=== PATIENT | female | born 1980 | race Caucasian/White ===

== ENCOUNTER 2020-03-24 10:07 | Emergency (ER) | payer BC ==
--- OUTSIDE RECORDS SUMMARY | 2020-03-24 10:09 | XMS REPORT | Clinical Summary ---
:1980 Author Organization [facility] Address [address] [place] [address] Care Team Providers Name Role Phone Santy Sarmiento MD Primary Care Provider [phone] Allergies Active Allergy Reactions Severity Noted Date Comments Penicillins Anaphylaxis, Hives High 12/07/2019 Medications Medication Sig Dispensed Refills Start Date End Date Status metFORMIN (GLUCOPHAGE) Take by mouth 2 0 09/20/2019 Active 500 mg tablet (two) times a day. valACYclovir (VALTREX) Take 500 mg by 0 09/15/2019 Active 500 MG tablet mouth as needed. Active Problems Problem Noted Date PCOS (polycystic ovarian syndrome) Encounters Date Type Specialty Care Team Description 12/18/2019 Hospital Encounter Radiology Santy Sarmiento MD 12/13/2019 Hospital Encounter Radiology Santy Sarmiento Screen ing for breast MD Jeb cancer 12/07/2019 Office Visit Family Medicine Santy Sarmiento Annual ph ysical exam (Primary Dx); MD Jeb Screening for b reast cancer; Screening for m etabolic disorder; Screening for d iabetes mellitus (DM); Screening for d eficiency anemia; Screening royer sterol level after 03/24/2019 Family History Medical History Relation Name Comments Skin cancer Father Hypertension Mother Skin cancer Mother Cervical cancer Sister Relation Name Status Comments Father Alive Mother Alive Sister Alive Social History Tobacco Use Types Packs/Day Years Used Date Never Smoker Smokeless Tobacco: Never Used Alcohol Use Drinks/Week oz/Week Comments Yes 4 Cans of beer 4.0 Sex Assigned at Date Recorded Not on file Job Start Date Occupation Industry Not on file Not on file Not on file Travel History Travel Start Travel End No recent travel history available. Last Filed Vital Signs Vital Sign Reading Time Taken Comments Blood Pressure 110/72 12/07/2019 10:40 AM FREELANCE INTERPRETER/TRANSLATOR Pulse 78 12/07/2019 10:40 AM FREELANCE INTERPRETER/TRANSLATOR Temperature 36.7 C (98 F) 12/07/2019 10:40 AM FREELANCE INTERPRETER/TRANSLATOR Respiratory Rate 16 12/07/2019 10:40 AM FREELANCE INTERPRETER/TRANSLATOR Oxygen Saturation 98% 12/07/2019 10:40 AM FREELANCE INTERPRETER/TRANSLATOR Inhaled Oxygen Concentration - - Weight 63.3 kg (139 lb 9.6 oz) 12/07/2019 10:40 AM FREELANCE INTERPRETER/TRANSLATOR Height 162.6 cm (5' 4") 12/07/2019 10:40 AM FREELANCE INTERPRETER/TRANSLATOR Body Mass Index 23.96 12/07/2019 10:40 AM FREELANCE INTERPRETER/TRANSLATOR Plan of Treatment Health Maintenance Due Date Last Done Comments INFLUENZA VACCINE 06/01/2020 CERVICAL CANCER SCREENING 12/21/2021 12/21/2018 Procedures Procedure Name Priority Date/Time Associated Comments Diagnosis MAMMO BREAST SCREEN Routine 12/13/2019 7:17 Screening for Res ults for this TOMOSYNTHESIS AM FREELANCE INTERPRETER/TRANSLATOR breast cancer procedure are in BILATERAL the results section. LIPID PANEL Routine 12/08/2019 7:44 Screening Results for this AM FREELANCE INTERPRETER/TRANSLATOR cholesterol level procedure are in the results section. CBC WITH PLATELET AND Routine 12/08/2019 7:44 Screening for R esults for this DIFFERENTIAL AM FREELANCE INTERPRETER/TRANSLATOR deficiency anemia procedure are in the results section. HEMOGLOBIN A1C Routine 12/08/2019 7:44 Screening for Results for this AM FREELANCE INTERPRETER/TRANSLATOR diabetes mellitus procedure are in (DM) the results section. COMPREHENSIVE Routine 12/08/2019 7:44 Screening for Results f or this METABOLIC PANEL AM FREELANCE INTERPRETER/TRANSLATOR metabolic disorder proced ure are in the results section. POC URINALYSIS Routine 12/07/2019 1:43 Annual physical Result s for this DIPSTICK PM FREELANCE INTERPRETER/TRANSLATOR exam procedure are i n the results section. after 03/24/2019 Results Mammo Breast Screen Tomosynthesis Bilateral (12/13/2019 7:17 AM FREELANCE INTERPRETER/TRANSLATOR) Specimen Addenda Addendum by Griselda Billings MD o n 12/20/2019 10:13 AM ADDENDUM #1 Outside institution digital mammograms d ated 11/07/2018 from [facility] outpatient imaging Departme nt have been provided for review and comparison. The previously described findings are st able and unchanged from prior comparison imaging. There are no suspici ous mammographic findings in either breast. BI-RADS Category 2: BENIGN. Narrative Performed At EXAMINATION: MAMMO BREAST SCREEN TOMOS YNTHESIS BILATERAL 12/13/2019 [facility] Computer-assisted detection was utilized in the interp retation of this exam. COMPARISONS: None. INDICATION: 39 year-old female who pre sents for annual evaluation. FINDINGS: The breast parenchyma is heterogeneously dense. This l imits the overall sensitivity of mammography, possibly obscuring the det ection of small masses. Within these limitations there are no suspicio us mammographic findings. IMPRESSION: No mammographic evidence of malignancy. In the absence of any clinical change, continued routine annual mammographic surveill ance per ACR guidelines is recommended. BI-RADS Category 2: BENIGN. DWS01 Performing Organization Address City/State/Zipcode Phone Number [facility] [address] [place] [address] CBC with platelet and differential (12/08/2019 7:44 AM FREELANCE INTERPRETER/TRANSLATOR) Pathologist Sig nature WBC 5.6 3.4 - 10.8 x10E3/uL [facility] RBC 3.99 3.77 - 5.28 x10E6/uL [facility] HGB 12.6 11.1 - 15.9 g/dL [facility] HCT 37.9 34.0 - 46.6 % [facility] MCV 95 79 - 97 fL [facility] MCH 31.6 26.6 - 33.0 pg [facility] MCHC 33.2 31.5 - 35.7 g/dL [facility] RDW 13.5 11.7 - 15.4 % [facility] Platelet count 246 150 - 450 x10E3/uL [facility] Neutrophils 68 Not Estab. % [facility] Lymphocytes 25 Not Estab. % [facility] Monocytes 5 Not Estab. % [facility] Eosinophils 2 Not Estab. % [facility] Basophils 0 Not Estab. % [facility] Neutrophils, absolute 3.8 1.4 - 7.0 x10E3/uL [facility] Lymphocytes, absolute 1.4 0.7 - 3.1 x10E3/uL [facility] Monocytes, absolute 0.3 0.1 - 0.9 x10E3/uL [facility] Eosinophils, absolute 0.1 0.0 - 0.4 x10E3/uL [facility] Basophils, absolute 0.0 0.0 - 0.2 x10E3/uL [facility] Immature granulocytes 0 Not Estab. % [facility] Immature grans (abs) 0.0 0.0 - 0.1 x10E3/uL [facility] Specimen Blood Narrative Performed At Performed at: [address] [id number] Butt Maker: Zachery Henry MD, Phone: [phone] Performing Organization Address [facility] Phone Number [facility] Hemoglobin A1c (12/08/2019 7:44 AM FREELANCE INTERPRETER/TRANSLATOR) Pathologist Sig nature Hemoglobin A1C 4.8 4.8 - 5.6 % [facility] Comment: Prediabetes: 5.7 - 6.4 Diabetes: >6.4 Glycemic control for adults with diabetes : <7.0 Specimen Blood Narrative Performed At Performed at: [place] [id number] Butt Maker: Zachery Henry MD, Phone: [phone] Performing Organization Address [facility] Phone Number [facility] Lipid panel (12/08/2019 7:44 AM FREELANCE INTERPRETER/TRANSLATOR) Pathologist Sig nature Cholesterol 161 100 - 199 mg/dL [facility] Triglycerides 65 0 - 149 mg/dL [facility] HDL cholesterol 79 >39 mg/dL [facility] VLDL cholesterol kathryn 13 5 - 40 mg/dL [facility] LDL cholesterol calculated 69 0 - 99 mg/dL [facility] Non-HDL cholesterol 82 0 - 129 mg/dL [facility] Specimen Blood Narrative Performed At Performed at: [address] [id number] Butt Maker: Zachery Henry MD, Phone: [phone] Performing Organization Address [facility] Phone Number [facility] Comprehensive metabolic panel (12/08/2019 7:44 AM FREELANCE INTERPRETER/TRANSLATOR) Glucose 83 65 - 99 mg/dL [facility] BUN 14 6 - 24 mg/dL [facility] Creatinine 0.94 0.57 - 1.00 [facility] mg/dL EGFR Non-Afr. 76 >59 [facility] Somali mL/min/1.73 EGFR 87 >59 [facility] Somali mL/min/1.73 BUN/creatinine ratio 15 9 - 23 [facility] Sodium 139 134 - 144 [facility] mmol/L Potassium 4.7 3.5 - 5.2 [facility] mmol/L Chloride 100 96 - 106 [facility] mmol/L CO2 22 20 - 29 mmol/L [facility] Calcium 9.4 8.7 - 10.2 [facility] mg/dL Protein 6.6 6.0 - 8.5 g/dL [facility] Albumin, S 4.5Comment: 3.8 - 4.8 g/dL [facility] Please note reference interval change Globulin, total 2.1 1.5 - 4.5 g/dL [facility] Albumin/globulin 2.1 1.2 - 2.2 [facility] ratio Total bilirubin 0.7 0.0 - 1.2 [facility] mg/dL Alkaline phosphatase 45 39 - 117 IU/L [facility] AST 17 0 - 40 IU/L [facility] ALT 13 0 - 32 IU/L [facility] Specimen Blood Narrative Performed At Performed at: [facility] [id number] Butt Maker: Zachery Henry MD, Phone: [phone] Performing Organization Address City/State/Zipcode Phone Number [facility] POC urinalysis dipstick (12/07/2019 1:43 PM FREELANCE INTERPRETER/TRANSLATOR) Pathologist Sig nature Color urine, POC Yellow Clarity urine, POC Clear Glucose urine, POC Negative Negative Bilirubin urine, POC Negative Negative Ketones urine, POC Negative Negative Specific gravity urine, 1.010 1.005 - 1.030 POC Blood urine, POC Negative Negative pH urine, POC 6.5 5.0, 5.5, 6.0, 6.5, 7.0, 7.5, 8.0, 8.5 Protein urine, POC Negative Negative Urobilinogen urine, POC <2.0 <2.0 Nitrite urine, POC Negative Negative Leukocyte esterase Negative Negative urine, POC Specimen Urine after 03/24/2019 Advance Directives For more information, please contact: [phone] Type Date Recorded Patient Police Captain Senior Explanati on Advance Directives, Living Will and Medical Power of Lead Care Manager
--- OUTSIDE RECORDS SUMMARY | 2020-03-24 10:10 | XMS REPORT ---
:1980 Author Organization [facility] t Address [address] [place] [address] [address]. [address] [place] [address] Care Team Providers Name Role Phone Torsten PIERSON, Rubia Russ Primary Care Physician Rubia Sarmiento MD Attending Clinician PROSPER KERN DR Attending Clinician Unavailable PROSPER KERN DR Admitting Clinician Unavailable Payers Payer Name Policy Type Policy Number Effective Date Expiration Date S ource BCBSANTHEM BLUE xxxxxxxxxxxx 2019 [place] CROSSxxxxxxxxxxx 00:00:00 Methodis t 2019-Presen tPPO Problems Condition Condition Condition Status Onset Resolution Last Treating Co mments Source Name Details Category Date Date Treatment Clinician Date PCOS PCOS Disease Active [place] (polycysti (polycysti Me thodi c ovarian c ovarian st syndrome) syndrome) Allergies, Adverse Reactions, Alerts Allergy Allergy Status Severity Reaction(s) Onset Inactive Treating Comm ents Source Name Type Date Date Clinician Penicill Propensi Active Anaphylaxis, [place] ins ty to Hives 2-06 [facility] adverse 00:00: st reaction 00 s to drug Family History Family Member Diagnosis Comments Start Date Stop Date Source Natural father Skin cancer [facility] ethodist Natural mother Hypertension [place] [facility] Natural mother Skin cancer [facility]ist Natural sister Cervical cancer [place] [facility] Social History Social Habit Start Date Stop Date Quantity Comments Source Sex Assigned At [facility] ethodist Alcohol intake 2019-12-07 2019-12-07 Current drinker [place] 00:00:00 00:00:00 of alcohol (finding) Smoking Status Start Date Stop Date Source Never smoker [place] [facility] t Medications Ordered Filled Start Stop Current Ordering Indication Dosage Frequency Signature Comments Components Source Medication Medication Date Date Medication? Clinician (SIG) Name Name metFORMIN 2018-11 Yes Q.5D Take by Gautam on (GLUCOPHAGE 1-20 mouth 2 Metho di ) 500 mg 00:00: (two) st tablet 00 times a day. valACYclovi 2018-11 Yes 500mg Take 500 [place] (VALTREX) 1-15 mg by Methodi 500 MG 00:00: mouth as st tablet 00 needed. Vital Signs Vital Name Observation Time Observation Value Comments Source Systolic blood 2019-12-07 10:40:00 110 mm[Hg] [place] pressure Diastolic blood 2019-12-07 10:40:00 72 mm[Hg] [place] pressure Heart rate 2019-12-07 10:40:00 78 /min Lew Donaldson Body temperature 2019-12-07 10:40:00 36.67 Norma [place] Respiratory rate 2019-12-07 10:40:00 16 /min [place] Body height 2019-12-07 10:40:00 162.6 cm Lew Donaldson Body weight 2019-12-07 10:40:00 63.322 kg Lew Donaldson BMI 2019-12-07 10:40:00 23.96 kg/m2 Lew Donaldson Oxygen saturation in 2019-12-07 10:40:00 98 /min Lew Donaldson Arterial blood by Pulse oximetry Procedures Procedure Date / Time Performed Performing Clinician Jaime e MAMMO BREAST SCREEN 2019-12-13 07:17:30 Santy Sarmiento TOMOSYNTHESIS BILATERAL COMPREHENSIVE METABOLIC 2019-12-08 07:44:00 Santy Sarmiento PANEL HEMOGLOBIN A1C 2019-12-08 07:44:00 Santy Sarmiento CBC WITH PLATELET AND 2019-12-08 07:44:00 Santy Sarmiento DIFFERENTIAL LIPID PANEL 2019-12-08 07:44:00 Santy Sarmiento POC URINALYSIS DIPSTICK 2019-12-07 13:43:00 Santy Sarmiento Plan of Care Planned Activity Planned Date Details Comments Source Future Scheduled 2021-12-21 Screening for [facility] Test 00:00:00 malignant neoplasm of cervix (procedure) [code = 695896131] Future Scheduled 2020-06-01 INFLUENZA VACCINE [place] [facility] Test 00:00:00 [code = INFLUENZA VACCINE] Encounters Start End Encounter Admission Attending Care Care Encounter Source Date/Time Date/Time Type Type Clinicians Facility Department ID 2018-03-25 2018-08-28 Outpatient C PROSPER II, [facility] 1 [id number] [place] 07:34:00 23:59:00 [facility] 2018-03-23 2018-03-23 Outpatient C PROSPER II, [facility] 10 [id number] [place] 11:43:00 15:27:00 [facility] 2018-03-08 2018-03-08 Outpatient C PROSPER II, [facility] [id number] [place] 07:37:00 23:59:00 [facility] 2017-10-20 2017-12-05 Outpatient C PROSPER II, [facility] PT 1 [id number] [place] 10:53:00 23:59:00 [facility] Results Test Description Test Time Test Comments Results Result [facility] e Comments Mammo Breast 2019-12-02 Addendum by Angelica Billings ton Screen 2 Griselda Lezama MD Metho dist Tomosynthesis 08:36:47 on 12/20/2019 10:13 Bilateral AM ADDENDUM #1 Outside institution digital mammograms dated 11/07/2018 from [facility] outpatient imaging Department have been provided for review and comparison. The previously described findings are stable and unchanged from prior comparison imaging. There are no suspicious mammographic findings in either breast. BI-RADS Category 2: BENIGN.EXAMINATION: MAMMO BREAST SCREEN TOMOSYNTHESIS BILATERAL 12/13/2019 Computer-assisted detection was utilized in the interpretation of this exam. COMPARISONS: None. INDICATION: 39 year-old female who presents for annual evaluation. FINDINGS: The breast parenchyma is heterogeneously dense. This limits the overall sensitivity of mammography, possibly obscuring the detection of small masses. Within these limitations there are no suspicious mammographic findings. IMPRESSION: No mammographic evidence of malignancy. In the absence of any clinical change, continued routine annual mammographic surveillance per ACR guidelines is recommended. BI-RADS Category 2: BENIGN. DWS01 Hemoglobin A1c 2019-12-09 07:09:00 Test Item Value Reference Range Interpretation Comme nts Hemoglobin A1C (test code 4.8 % 4.8-5.6 Prediabetes: 5.7 = 4548-4) - 6.4 D iabetes: >6.4 Gl ycemic control for john lts with diabetes: <7.0 REINALDO (test code = REINALDO) Performed at: [facility] [id number] Director: Zachery Henry MD, Phone: [phone] [facility] [id number] 04:07:00 Test Item Value Reference Range Interpretation Comments Glucose (test code 83 mg/dL 65-99 = 2345-7) BUN (test code = 14 mg/dL 6-24 3094-0) Creatinine (test 0.94 mg/dL 0.57-1 code = 2160-0) EGFR Non-Afr. 76 mL/min/1.73 >59 [place] (test code = 2775) EGFR 87 mL/min/1.73 >59 [facility] (test code = 2774) BUN/creatinine 15 9-23 ratio (test code = 3097-3) Sodium (test code = 139 mmol/L 592-279 2774-2) Potassium (test 4.7 mmol/L 3.5-5.2 code = 2823-3) Chloride (test code 100 mmol/L 96-106 = 2075-0) CO2 (test code = 22 mmol/L 20-29 2027-9) Calcium (test code 9.4 mg/dL 8.7-10.2 = 96147-0) Protein (test code 6.6 g/dL 6-8.5 = 2885-2) Albumin, S (test 4.5 g/dL 3.8-4.8 code = 1751-7) Please note reference interval change Globulin, total 2.1 g/dL 1.5-4.5 (test code = 79781-4) Albumin/globulin 2.1 1.2-2.2 ratio (test code = 1759-0) Total bilirubin 0.7 mg/dL 0-1.2 (test code = 1975-2) Alkaline 45 39- 117 IU/L phosphatase (test code = 6768-6) AST (test code = 17 0- 40 IU/L 1920-8) ALT (test code = 13 0- 32 IU/L 1742-6) REINALDO (test code = Performed at: 01 REINALDO) - [facility] [id number] [place], [place] [id number] Director: Zachery Henry MD, Phone: [phone] [facility] [id number] 03:07:00 Test Item Value Reference Range Interpretation Comments Cholesterol (test code = 161 mg/dL 034-089 7746-3) Triglycerides (test code 65 mg/dL 0-149 = 2571-8) HDL cholesterol (test 79 mg/dL >39 code = 2085-9) VLDL cholesterol kathryn 13 mg/dL 5-40 (test code = 92950-6) LDL cholesterol 69 mg/dL 0-99 calculated (test code = 71942-2) Non-HDL cholesterol 82 mg/dL 0-129 (test code = 25879-9) REINALDO (test code = REINALDO) Performed at: - [facility] [address] [id number] Director: Zachery Henry MD, Phone: [phone] [facility] with platelet and [id number] 00:07:00 Test Item Value Reference Range Interpretation Comments WBC (test code = 5.6 3.4- 10.8 x10E3/uL 6690-2) RBC (test code = 3.99 3.77- 5.28 x10E6/uL 789-8) HGB (test code = 12.6 g/dL 11.1-15.9 718-7) HCT (test code = 37.9 % 34-46.6 4544-3) MCV (test code = 95 fL 79-97 787-2) MCH (test code = 31.6 pg 26.6-33 785-6) MCHC (test code = 33.2 g/dL 31.5-35.7 786-4) RDW (test code = 13.5 % 11.7-15.4 788-0) Platelet count (test 246 150- 450 x10E3/uL code = 777-3) Neutrophils (test code 68 % Not Estab. = 770-8) Lymphocytes (test code 25 % Not Estab. = 736-9) Monocytes (test code = 5 % Not Estab. 5905-5) Eosinophils (test code 2 % Not Estab. = 713-8) Basophils (test code = 0 % Not Estab. 706-2) Neutrophils, absolute 3.8 1.4- 7.0 x10E3/uL (test code = 751-8) Lymphocytes, absolute 1.4 0.7- 3.1 x10E3/uL (test code = 731-0) Monocytes, absolute 0.3 0.1- 0.9 x10E3/uL (test code = 742-7) Eosinophils, absolute 0.1 0.0- 0.4 x10E3/uL (test code = 711-2) Basophils, absolute 0.0 0.0- 0.2 x10E3/uL (test code = 704-7) Immature granulocytes 0 % Not Estab. (test code = 54123-7) Immature grans (abs) 0.0 0.0- 0.1 x10E3/uL (test code = 53206-1) REINALDO (test code = REINALDO) Performed at: [facility] [id number] Director: Zachery Henry MD, Phone: [phone] [facility] urinalysis [id number] 13:43:00 Test Item Value Reference Range Interpretation Comments Color urine, POC (test code Yellow = 5094479) Clarity urine, POC (test Clear code = 4746008) Glucose urine, POC (test Negative Negative code = 0535527) Bilirubin urine, POC (test Negative Negative code = 9546968) Ketones urine, POC (test Negative Negative code = 8271163) Specific gravity urine, POC 1.010 1.005-1.030 (test code = 1495140) Blood urine, POC (test code Negative Negative = 3410501) pH urine, POC (test code = 6.5 5.0, 5.5, 6.0, 6.5, 7.0, 9353600) 7.5, 8.0, 8.5 Protein urine, POC (test Negative Negative code = 9093129) Urobilinogen urine, POC <2.0 <2.0 (test code = 4264706) Nitrite urine, POC (test Negative Negative code = 4784655) Leukocyte esterase urine, Negative Negative POC (test code = 0437419) [facility]2018-03-23 13:02:00 Test Item Value Reference Range Interpretation Comments PREG UR (test code = PGU) NEGATIVE NEGATIVE MRI UPP EXT ANY JOIN W/O [id number] 10:33:35LOCATION: [id number]: MRI LEFT SHOULDER WITHOUT CONTRASTINDICATION: Left shoulder painCOMPARISON: None.T ECHNIQUE: Multiplanar, multisequence imaging of the left shoulder wasperformed without the administration of contrast. FINDINGS: Biceps labral complex: The intra-articular portion of the biceps tendonincluding the labral anchor is intact. No evidence of tear.Labrum: Subtle anterior labral tear seen atthe 3:00 to 5:00 position. Nodisplaced labral fragments.Glenohumeral ligaments: Grossly intact.Rotator cuff tendons: The supraspinatus, infraspinatus, subscapularis and teresminor are intact.Acromio-osseous outlet: Type I acromion with mild lateral downsloping. Beforemeals joint normal alignment. Coracoclavicular ligaments are intact.Muscles: Muscles are symmetric in bulk and normal in signal.Cartilage: No full-thickness cartilage defect is identified.Bone: No fracture or stress reaction is seen.Soft tissue: No significant joint effusion is present. No abnormality of theneurovascular structures.IMPRESSION: 1. Subtle anterior labral tear from the 3:00 to 5:00 position.2. No rotator cuff tear.
[2020-03-24] MEDS ORDERED: LIDOCAINE 1% MPF 5 ML VIAL ONE ×2 (10:46→11:01)
--- NOTE | 2020-03-24 11:17 | RAD REPORT ---
EXAM DESCRIPTION: RAD - Hand Left 3 View - 03/24/2020 11:03 am CLINICAL HISTORY: laceration, left hand pain, left hand injury COMPARISON: None. FINDINGS: No fracture, dislocation or periosteal reaction noted. No foreign body seen. Soft tissue i njury is evident between the first and second metacarpal bones. IMPRESSION: Soft tissue injury without foreign body. No acute bone or joint finding.
--- NOTE | 2020-03-24 11:30 | EDPHYS ---
Physician Documentation [facility] Name: Carlee Nguyen Age: 39 yrs Sex: Female : 1980 Arrival Date: 03/24/2020 Time: 10:07 Bed 13 Private MD: ED Physician Kulwant Acharya HPI: 03/24 10:27 This 39 yrs old Female presents to ER via Ambulatory with complaints of Laceration To pm1 Left Hand. 10:27 The patient has a laceration related to: cooking, from a knife, occurred at home, and pm1 there are no complicating factors. The injury was accidental. The laceration(s) is(are) located on the Left first web space. Onset: The symptoms/episode began/occurred just prior to arrival. Associated signs and symptoms: Pertinent negatives: heavy bleeding, numbness distal to injury, suspected foreign body. The patient has not experienced similar symptoms in the past. Patient was attempting to separate frozen biscuits with a knife in her right hand and she accidentally cut her left hand when the knife slipped. Historical: - Allergies: 10:22 PENICILLINS (Anaphylaxis); hb - Home Meds: 10:22 Vitamin Oral tab 1 tab once daily [Active]; Colace oral oral [Active]; hb - PMHx: 10:22 None; hb - PSHx: 10:22 Shoulder - Left; D \T\ C; hb - Immunization history:: Adult Immunizations up to date. - Social history:: Smoking status: Patient denies any tobacco usage or history of. ROS: 10:27 Constitutional: Negative for fever, chills, and weight loss, Cardiovascular: Negative pm1 for chest pain, palpitations, and edema, Respiratory: Negative for shortness of breath, cough, wheezing, and pleuritic chest pain, Abdomen/GI: Negative for abdominal pain, nausea, vomiting, diarrhea, and constipation. 10:27 Neuro: Negative for headache, weakness, numbness, tingling, and seizure. 10:27 MS/extremity: Positive for laceration, of the Left first web space, Negative for decreased range of motion, paresthesias, tingling. 10:27 Skin: Positive for laceration(s), of the Left first web space. Exam: 10:27 Constitutional: This is a well developed, well nourished patient who is awake, alert, pm1 and in no acute distress. Head/Face: Normocephalic, atraumatic. Chest/axilla: Normal chest wall appearance and motion 10:27 Cardiovascular: Exam negative for acute changes, Rate: normal, Rhythm: regular, Pulses: no pulse deficits are appreciated. 10:27 Respiratory: Exam negative for acute changes, respiratory distress, shortness of breath. 10:27 Skin: Appearance: normal except for affected area, injury, laceration(s), the wound is approximately 2 cm(s), of the Left first web space, that can be described as clean, no foreign body, linear, with mild bleeding. 10:27 Neuro: Exam negative for acute changes, Orientation: is normal, Mentation: is normal, Motor: is normal, moves all fours, strength is 5/5 in the left hand, Sensation: is normal, no obvious gross deficits, Gait: is steady, at a normal pace, without difficulty. Vital Signs: 10:19 BP 114 / 81; Pulse 81; Resp 16; Temp 97.2; Pulse Ox 100% on R/A; Weight 61.23 kg; hb Height 5 ft. 4 in. (162.56 cm); Pain 2/10; 10:19 Body Mass Index 23.17 (61.23 kg, 162.56 cm) hb Laceration: 11:28 Wound Repair of 1.5cm ( 0.6in ) subcutaneous laceration to Left first web space. Linear pm1 shaped.. Distal neuro/vascular/tendon intact. Anesthesia: Local anesthetic administered with 2 mls of 1% lidocaine. Wound prep: Extensive cleansing with hibiclenz by me, Wound irrigation with saline by pr, Wound explored extensively, Copious irrigation. Skin closed with 4 4-0 Prolene using simple sutures and sterile technique. Dressed with Neosporin, 4x4's. Patient tolerated well. MDM: 10:23 Patient medically screened. pm1 11:28 Data reviewed: vital signs. Data interpreted: Pulse oximetry: on room air is 100 %. pm1 Interpretation: normal. Counseling: I had a detailed discussion with the patient and/or guardian regarding: the historical points, exam findings, and any diagnostic results supporting the discharge/admit diagnosis, radiology results, the need for outpatient follow up, to return to the emergency department if symptoms worsen or persist or if there are any questions or concerns that arise at home. 03/24 10: Order name: Hand Left 3 View XRAY; Complete Time: 11: pm03/24 10: Order name: Prolene, Sutures; Complete Time: 11: pm03/24 10: Order name: Dressing - Wound; Complete Time: 11: pm03/24 10: Order name: Gloves, Sterile; Complete Time: : pm03/24 10: Order name: Setup Suture Tray; Complete Time: : pm Administered Medications: No medications were administered Disposition: 19:17 Co-signature as Attending Physician, Kulwant Acharya MD. 7 Disposition: 03/24/20 11:29 Discharged to Home. Impression: Laceration without foreign body of left hand. - Condition is Stable. - Discharge Instructions: Laceration Care, Adult. - Medication Reconciliation Form, Thank You Letter, Antibiotic Education, Prescription Opioid Use form. - Follow up: Emergency Department; When: As needed; Reason: Worsening of condition. Follow up: Private Physician; When: 10 - 14 days; Reason: Wound Recheck, Recheck today's complaints, Continuance of care, Staple/Suture removal, Re-evaluation by your physician. - Problem is new. - Symptoms have improved. Signatures: Dispatcher [employer] EDMS Dave Baez, VACUUM METALIZER OPERATOR VACUUM METALIZER OPERATOR pm1 Tracey Fountain RN RN Kulwant Elizabeth MD MD 7 Corrections: (The following items were deleted from the chart) 11:55 11:29 03/24/2020 11:29 Discharged to Home. Impression: Laceration without foreign body hb of left hand. Condition is Stable. Forms are Medication Reconciliation Form, Thank You Letter, Antibiotic Education, Prescription Opioid Use. Follow up: Emergency Department; When: As needed; Reason: Worsening of condition. Follow up: Private Physician; When: 10 - 14 days; Reason: Wound Recheck, Recheck today's complaints, Continuance of care, Staple/Suture removal, Re-evaluation by your physician. Problem is new. Symptoms have improved. pm1
--- NOTE | 2020-03-24 11:30 | ER ---
Nurse's Notes [facility] Name: Carlee Nguyen Age: 39 yrs Sex: Female : 1980 Arrival Date: 03/24/2020 Time: 10:07 Bed 13 Private MD: Diagnosis: Laceration without foreign body of left hand Presentation: 03/24 10:19 Chief complaint: Laceration to left hand with clean kitchen knife approx 45 mins [employer]. hb Bleeding controlled. Pt also reports she is 5 months . Coronavirus screen: Proceed with normal triage. Ebola Screen: No symptoms or risks identified at this time. Initial Sepsis Screen: Does the patient meet any 2 criteria? No. Patient's initial sepsis screen is negative. Does the patient have a suspected source of infection? No. Patient's initial sepsis screen is negative. Risk Assessment: Do you want to hurt yourself or someone else? Patient reports no desire to harm self or others. Onset of symptoms. 10:19 Method Of Arrival: Ambulatory hb 10:19 Acuity: JOSE GUADALUPE 4 hb Triage Assessment: 10:24 General: Appears in no apparent distress. Behavior is calm, cooperative. Pain: Pain hb currently is 2 out of 10 on a pain scale. EENT: No signs and/or symptoms were reported regarding the EENT system. Neuro: Level of Consciousness is awake, alert, obeys commands, Oriented to person, place, time, situation. Cardiovascular: Capillary refill < 3 seconds Patient's skin is warm and dry. Respiratory: Airway is patent Respiratory effort is even, unlabored, Respiratory pattern is regular, symmetrical. GI: No signs and/or symptoms were reported involving the gastrointestinal system. : No signs and/or symptoms were reported regarding the genitourinary system. Derm: Skin is pink, warm \T\ dry. Musculoskeletal: No signs and/or symptoms reported regarding the musculoskeletal system. Injury Description: Laceration sustained to Left first web space is clean, 2.6 to 7.5 cm long, not bleeding, was sustained 30-60 minutes ago. Historical: - Allergies: 10:22 PENICILLINS (Anaphylaxis); hb - Home Meds: 10:22 Vitamin Oral tab 1 tab once daily [Active]; Colace oral oral [Active]; hb - PMHx: 10:22 None; hb - PSHx: 10:22 Shoulder - Left; D \T\ C; hb - Immunization history:: Adult Immunizations up to date. - Social history:: Smoking status: Patient denies any tobacco usage or history of. Screenin:25 Abuse screen: Denies threats or abuse. Denies injuries from another. Nutritional hb screening: No deficits noted. Tuberculosis screening: No symptoms or risk factors identified. Fall Risk None identified. Assessment: 10:25 General: see triage. hb 11:55 Reassessment: Patient appears in no apparent distress at this time. Patient and/or hb family updated on plan of care and expected duration. Pain level reassessed. Patient is alert, oriented x 3, equal unlabored respirations, skin warm/dry/pink. Vital Signs: 10:19 BP 114 / 81; Pulse 81; Resp 16; Temp 97.2; Pulse Ox 100% on R/A; Weight 61.23 kg; hb Height 5 ft. 4 in. (162.56 cm); Pain 2/10; 10:19 Body Mass Index 23.17 (61.23 kg, 162.56 cm) hb ED Course: 10:07 Patient arrived in ED. am2 10:20 Triage completed. hb 10:22 Arm band placed on. hb 10:23 Dave Baez NP is PHCP. pm1 10:23 Kulwant Acharya MD is Attending Physician. pm1 10:23 Tracey Fountain, RN is Primary Nurse. hb 10:25 Patient has correct armband on for positive identification. Bed in low position. Call hb light in reach. 11:05 Hand Left 3 View XRAY In Process Unspecified. EDMS 11:55 No provider procedures requiring assistance completed. Patient did not have IV access hb during this emergency room visit. Administered Medications: No medications were administered Outcome: 11:29 Discharge ordered by . pm1 11:55 Discharged to home ambulatory. hb 11:55 Condition: stable 11:55 Discharge instructions given to patient, Instructed on discharge instructions, follow up and referral plans. medication usage, wound care, Demonstrated understanding of instructions, follow-up care, medications, wound care. 11:55 Patient left the ED. hb Signatures: Dispatcher [employer] EDNH Dave Baez NP [employer]ER pm1 Tracey Fountain, RN RN Laurie Felipe am2
[2020-03-24 12:02] VITALS: BP 114/81; TEMP 97.2; O2SAT 100
== END 2020-03-24 11:55 | disposition home or self-care (01) ==
LOC: ER 10:07
PROC: 0JQK0ZZ Repair Left Hand Subcutaneous Tissue and Fascia, Open Approach (ICD-10-PCS; principal; 2020-03-24)
DX: O26.893 Other specified pregnancy related conditions, third trimester (principal); S61.412A Laceration without foreign body of left hand, initial encounter; W26.0XXA Contact with knife, initial encounter; Y93.G3 Activity, cooking and baking; Y92.010 Kitchen of single-family (private) house as the place of occurrence of the external cause; Z88.0 Allergy status to penicillin
CPT/HCPCS: 99283